=== PATIENT | male | born 1960 | race Caucasian/White ===

== ENCOUNTER 2016-07-05 13:39 | Day surgery (SDC) | payer OTHER ==
--- NOTE | ~2016-07-05 | OP ---
Record Of Operation [facility] [address] [place]. [address] NAME: MARIBEL MOORE : 58 STATUS : PRE IN PAT#: [id number] AGE: 56 ADM/REG DATE : MR#: [id number] REPORT SERV DATE: 07/06/16 DICTATED BY: CLARKE ARCE DATE: 07/06/16 REPORT STATUS : Draft TRANSCRIBED BY: MODL DATE: 07/06/16 DATE OF PROCEDURE: PREOPERATIVE DIAGNOSIS: 1. Herniated nucleus polyposis, spinal stenosis, left L5-S1. 2. Acute intractable left-sided leg pain. POSTOPERATIVE DIAGNOSIS: 1. Herniated nucleus polyposis, spinal stenosis, left L5-S1. 2. Acute intractable left-sided leg pain. HISTORY OF PRESENT ILLNESS: This is a 56-year-old male with intractable leg pain on the left side. It was rather acute in onset. He has had some intermittent back pain, left hip and leg pain that he has been dealing with for a long time. He has been able to manage in but has recently it was just acute abrupt worsening. Now the pain is 10/10, and he can hardly stand and walk on the left because of the intractable pain. I had seen him last week in the office and tried some medications and conservative care, but he came to the office this morning and saw my physician's casino assistant manager, Lisa Kennedy, because the pain was just so out of control. Marcia felt that his pain was so out of control that she contacted me, and I suggested we proceed with admission and surgical decompression due to the pain being out of control. I have gone over the risks, benefits, alternatives, and expectations of the hemilaminotomy and microdiskectomy, which would include, but not limited to infection, there could be injury to the thecal sac, nerve roots with numbness, tingling, weakness, paralysis. Recurrent disk herniation can occur requiring additional surgery and/or spinal arthrodesis. No guarantees this will resolve and/or all symptoms. There could be incidental durotomy, subsequent meningitis, arachnoiditis, or need for surgical drain and repair. Medical complications such as UTI, PE, pneumonia, HI, CVA, etc., were explained. Consent form was signed. PROCEDURE IN DETAIL: The patient was identified in preop holding area, antibiotic prophylaxis given. Neurophysiology monitoring leads inserted. The patient brought to the operative suite. General anesthetic including endotracheal intubation was administered. He was placed prone on a Jayro spine frame. Bony prominences were carefully padded. Thoracolumbar spine was scrubbed with Hibiclens solution. DuraPrep was painted. Sterile drapes applied. Because of the complexity of surgery and the need to identify correct level of surgery intraoperatively as well as desire to carry out the safest and most precise dissection, I felt that intraoperative navigation was mandatory. A small stab wound was carried out over the right posterior superior iliac spine. A percutaneous pin with navigational frame attached was inserted in the PSIS. Intraoperative CT scan with O-arm obtained. CT information used to register the navigational system. With navigational assistance, I identified L5-S1. Just left of midline, a 2 cm skin incision was carried out. A blunt navigated probe was placed through the fascia muscle and Record Of Operation [facility] [address] [facility] [place]. [address] NAME: MARIBEL MOORE : 58 STATUS : PRE IN [facility]#: [id number] AGE: 56 ADM/REG DATE : MR#: [id number] REPORT SERV DATE: 07/06/16 DICTATED BY: CLARKE ARCE DATE: 07/06/16 REPORT STATUS : Draft TRANSCRIBED BY: AQUILES DATE: 07/06/16 docked over the interlaminar space. Muscle dilators inserted, followed by placement of a tubular retractor attached to an arm mount on the table. The microscope was sterilely draped and used throughout the remainder of the procedure. With navigational assistance, I identified the amount of lamina of L5 to remove in order to reach the cephalad boundary of the disk space. I used a 3 mm jose bur and removed 20% of the lamina of L5, approximately 10% of medial facet joint of L5-S1. The lateral ligamentum flavum was elevated and removed. There was some facet hypertrophy that was contributing to some lateral recess impingement. There was definitely disk herniation with extrusion inferiorly behind the body of S1. Disc herniation was removed with rongeurs. The wound was irrigated. No further impingement by either disk, bone, or ligament was found. The S1 nerve root was completely decompressed. The retractor was removed. No bleeding was noted. The fascial layer was closed with a single interrupted #1 Vicryl suture. The subcutaneous tissue closed with 2-0 Vicryl sutures, 2-0 vertical mattress nylon suture used for skin closure. Sterile dressings applied. The patient awakened, extubated, taken to recovery room in satisfactory condition having tolerated the procedure well. Sponge, needle, and instrument counts were correct. No intraoperative complications were noted. FANTA/MODL Clarke Arce D.O. / [id number] CC: Kathy Vieira MD
[2016-07-05 10:59] LABS: BASOPHILS 1.2 %; BASOPHILS ABSOLUTE 0.09 10/3/uL (0.0-0.16); EOSINOPHILS 2.6 %; HEMATOCRIT 50.5 % (40.0-51.0); HEMOGLOBIN 17.4 g/dL (13.6-17.8); IMMATURE GRANULOCYTES 0.4 %; IMMATURE GRANULOCYTES ABSOLUTE 0.03 10/3/uL (0.0-0.11); LYMPHOCYTES 30.2 %; LYMPHOCYTES ABSOLUTE 2.28 10/3/uL (0.67-4.30); MEAN CORPUS HGB CONC 34.5 g/dL (32.0-36.0); MEAN CORPUSCULAR VOLUME 98.6 fL (80-100); MEAN PLATELET VOLUME 10.5 fL (9.2-13.0); MONOCYTES 6.9 %; MONOCYTES ABSOLUTE 0.52 10/3/uL (0.21-1.20); NEUTROPHILS 58.7 %; NEUTROPHILS ABSOLUTE 4.44 10/3/uL (2.02-8.40); PLATELET COUNT 180 10/3/uL (150-400); RBC DISTRIBUTION WIDTH 14.1 % (12.0-16.0); RED CELL COUNT 5.12 10/6/uL (4.7-6.1); WHITE BLOOD CELLS 7.6 10/3/uL (4.5-10.5)
[2016-07-05 11:02] LABS: MANUAL DIFF NO %
[2016-07-05 11:10] LABS: BUN (BLOOD UREA NITROGEN) 19 MG/DL (6-23); CALCIUM, SERUM 8.5 MG/DL (8.5-10.4); CHLORIDE, SERUM 108 MMOL/L (96-112); CO2 (CARBON DIOXIDE) 27 MMOL/L (24-34); CREATININE 0.95 MG/DL (0.70-1.30); GFR AFRICAN AMERICAN 103 ML/MIN (>=60); GFR NON AFRICAN AMERICAN 89 ML/MIN (>=60); GLUCOSE, SERUM 96 MG/DL (60-99); SODIUM, SERUM 143 MMOL/L (135-148)
== END 2016-07-05 23:59 | disposition home health service (06) ==
LOC: SDC 13:39
PROVIDERS: Orthopaedic Surgery Orthopaedic Surgery of the Spine
PROC: 0SB43ZZ Excision of Lumbosacral Disc, Percutaneous Approach (ICD-10-PCS; 2016-07-05)
PROC: 0SB20ZZ Excision of Lumbar Vertebral Disc, Open Approach (ICD-10-PCS; principal; 2016-07-05 08:45)
PROC: 01NB0ZZ Release Lumbar Nerve, Open Approach (ICD-10-PCS; 2016-07-05 08:45)
DX: M51.16 Intervertebral disc disorders with radiculopathy, lumbar region (principal); E11.9 Type 2 diabetes mellitus without complications; I10 Essential (primary) hypertension; Z79.51 Long term (current) use of inhaled steroids; Z79.891 Long term (current) use of opiate analgesic; G47.33 Obstructive sleep apnea (adult) (pediatric); F17.200 Nicotine dependence, unspecified, uncomplicated
CPT/HCPCS: 80048; 85025; 85610; 85730; 93005; A9270-GY; J0690; J1170; J2250; J2274; J2405; J2710; J3010